=== PATIENT | female | born 1945 | race Asian ===

== ENCOUNTER 2016-06-19 03:27 | Emergency (ER) | payer SELFPAY ==
[2016-06-19] MEDS ORDERED: NS 0.9% 1000 ML* 1,000 ML IV ONE (03:51)
[2016-06-19] MEDS ORDERED: Ondansetron INJ* 2 MG/ML VIAL IV ONE (03:51)
[2016-06-19] MEDS ORDERED: SCOP/HYOS/ATR/PB(NF) 10 ML UDC PO ONE (04:44)
[2016-06-19] MEDS ORDERED: Al Hydrox/Mg Hydrox/Simet LIQ* 30 ML UDC PO ONE (04:44)
[2016-06-19] MEDS ORDERED: Lidocaine 2% VISCOUS* 15 ML UDC PO ONE (04:44)
[2016-06-19 04:50] LABS: Hematocrit 34 % (35-47); Hemoglobin 11.6 g/dl (12.0-16.0); Mean Corpuscular HGB Conc 34 g/dl (31-36); Mean Corpuscular Hemoglobin 34 pg (27-31); Mean Corpuscular Volume 99 fL (80-97); Mean Platelet Volume 9 um3 (7.4-10.4); Red Blood Count 3.48 10^6/ul (4.0-5.4); Red Cell Distribution Width 13 % (10.5-15); White Blood Count 9.1 10^3/ul (3.5-10.8)
[2016-06-19 05:02] LABS: Albumin 4.5 g/dL (3.2-5.2); BUN/Creatinine Ratio 31.8 (8-20); C Reactive Protein 1.18 mg/L (< 5.00); EGFR African American 113.5 (>60); EGFR Non-African American 88.3 (>60); Globulin 2.5 g/dL (2-4); Potassium 3.4 mmol/L (3.5-5.0); Total Bilirubin 0.3 mg/dL (0.2-1.0)
[2016-06-19] MEDS ORDERED: Famotidine IV* 10 MG/ML 2 ML (20 mg) IV SLOW PU ONE (05:08)
--- NOTE | 2016-06-19 05:45 | ED ---
Wilmer Ontiveros Billy, scribed for Augustus Landers MD on 06/19/16 at 0352 . Abdominal Pain/Female - HPI Summary HPI Summary: Patient is a 71 year-old female coming to [facility] with her son, who is translating. They report that at approximately 2200 yesterday evening, the patient began to have constant epigastric pain. Severity 10/10. Nothing makes the pain better or worse. She also reports nausea. The patient has seen a physician for prior episodes of abdominal pain; when asked, her son is only able to describe the diagnosis as "stomach aches." She is also taking medication for those problems, although her son says that the pill bottle is in [place] and he is unable to translate. Her pain was unimproved tonight with this pill. They deny any other symptoms. She also states that she had been eating spicy food last night. - History of Current Complaint Chief Complaint: Jairo Stated Complaint: ABD PAIN Time Seen by Provider: 06/19/16 03:43 Hx Obtained From: Patient, Rehab Services Aide - patient's son Onset/Duration: Gradual Onset, Lasting Hours, Still Present Timing: Constant Severity Initially: Moderate Severity Currently: Moderate Pain Intensity: 10 Pain Scale Used: 0-10 Numeric Location: Epigastric Radiates: No Aggravating Factor(s): Nothing Alleviating Factor(s): Nothing Associated Signs and Symptoms: Positive: Nausea Allergies/Adverse Reactions: Allergies Allergy/AdvReac Type Severity Reaction Status Date / Time Penicillins Allergy Unknown Verified 06/19/16 04:17 Reaction Details PMH/Surg Hx/FS Hx/Imm Hx Endocrine/Hematology History: Reports: Hx Thyroid Disease Cardiovascular History: Reports: Hx Hypertension Infectious Disease History: No Infectious Disease History: Denies: Traveled Outside the [place] in Last 30 Days - Family History Known Family History: Positive: Hypertension - Social History Alcohol Use: None Substance Use Type: Reports: None Hx Tobacco Use: No Smoking Status (MU): Never Smoked Tobacco Review of Systems Negative: Fever Positive: Abdominal Pain, Nausea All Other Systems Reviewed And Are Negative: Yes Physical Exam Triage Information Reviewed: Yes Vital Signs On Initial Exam: Initial Vitals Temp Pulse Resp BP Pulse Ox 98.5 F 67 20 119/65 97 06/19/16 03:35 06/19/16 03:35 06/19/16 03:35 06/19/16 03:35 06/19/16 03:35 Vital Signs Reviewed: Yes Appearance: Positive: Pain Distress - mild discomfort, Thin Skin: Positive: Warm Eyes: Positive: ANGÉLICA ENT: Positive: Hearing grossly normal Neck: Positive: Supple Respiratory/Lung Sounds: Positive: Clear to Auscultation, Breath Sounds Present Cardiovascular: Positive: Normal Abdomen Description: Positive: No Organomegaly, Soft, Other: - mild mid epigastric trenderness Bowel Sounds: Positive: Present Musculoskeletal: Positive: Strength/ROM Intact Neurological: Positive: Sensory/Motor Intact AVPU Assessment: Alert Diagnostics - Vital Signs Vital Signs Temp Pulse Resp BP Pulse Ox 06/19/16 03:35 98.5 F 67 20 119/65 97 - Laboratory Lab Results: Lab Results 06/19/16 06/19/16 06/19/16 Range/Units 04:20 04:20 04:20 WBC 9.1 (3.5-10.8) 10^3/ul RBC 3.48 L (4.0-5.4) 10^6/ul Hgb 11.6 L (12.0-16.0) g/dl Hct 34 L (35-47) % MCV 99 H (80-97) fL MCH 34 H (27-31) pg MCHC 34 (31-36) g/dl RDW 13 (10.5-15) % Plt Count 155 (150-450) 10^3/ul MPV 9 (7.4-10.4) um3 Neut % (Auto) 89.8 H (38-83) % Lymph % (Auto) 6.5 L (25-47) % [place] % (Auto) 3.0 (1-9) % Eos % (Auto) 0.1 (0-6) % Baso % (Auto) 0.6 (0-2) % Absolute Neuts (auto) 8.1 H (1.5-7.7) 10^3/ul Absolute Lymphs (auto) 0.6 L (1.0-4.8) 10^3/ul Absolute Monos (auto) 0.3 (0-0.8) 10^3/ul Absolute Eos (auto) 0 (0-0.6) 10^3/ul Absolute Basos (auto) 0.1 (0-0.2) 10^3/ul Absolute Nucleated RBC 0 10^3/ul Nucleated RBC % 0 Sodium 136 (133-145) mmol/L Potassium 3.4 L (3.5-5.0) mmol/L Chloride 103 (101-111) mmol/L Carbon Dioxide 26 (22-32) mmol/L Anion Gap 7 (2-11) mmol/L BUN 21 (6-24) mg/dL Creatinine 0.66 (0.51-0.95) mg/dL Est GFR ( Amer) 113.5 (>60) Est GFR (Non-Af Amer) 88.3 (>60) BUN/Creatinine Ratio 31.8 H (8-20) Glucose 129 H (70-100) mg/dL Lactic Acid 0.8 (0.5-2.0) mmol/L Calcium 9.0 (8.6-10.3) mg/dL Magnesium 2.0 (1.9-2.7) mg/dL Total Bilirubin 0.30 (0.2-1.0) mg/dL AST 27 (13-39) U/L ALT 16 (7-52) U/L Alkaline Phosphatase 79 (34-104) U/L C-Reactive Protein 1.18 (< 5.00) mg/L Total Protein 7.0 (6.4-8.9) g/dL Albumin 4.5 (3.2-5.2) g/dL Globulin 2.5 (2-4) g/dL Albumin/Globulin Ratio 1.8 (1-3) Lipase 31 (11.0-82.0) U/L Result Diagrams: 06/19/16 04:20 06/19/16 04:20 Lab Statement: Any lab studies that have been ordered have been reviewed, and results considered in the medical decision making process. - EKG 0341 EKG Interpretation: NSR 66 bpm, no ST changes, WNL Re-Evaluation - Re-Evaluation First Eval Re-Evaluation Time: 06:00 - results d/w pt and family Change: Improved Abdominal Pain Fem Course/Dx - Diagnoses Provider Diagnoses: Peptic ulcer disease, Abdominal pain Discharge - Discharge Plan Condition: Improved Disposition: HOME Patient Education Materials: Peptic Ulcer (ED), Diet for Ulcers and Gastritis ( ED), Abdominal Pain (ED) Print Language: MONGOLIAN Referrals: [facility] [Outside] The documentation as recorded by the Wilmer mojica Billy accurately reflects the service I personally performed and the decisions made by me, Augustus Landers MD.
[2016-06-19 06:36] VITALS: BP 106/58
== END 2016-06-19 06:29 | disposition home or self-care (01) ==
LOC: ED 03:27
DX: K27.9 Peptic ulcer, site unspecified, unspecified as acute or chronic, without hemorrhage or perforation (principal); R10.9 Unspecified abdominal pain; R11.0 Nausea
CPT/HCPCS: 36415; 80053; 83605; 83690; 83735; 85025; 86140; 93005; 96360; 96374; 99284; A9270-GY; J2405